=== PATIENT | male | born 1940 | race Caucasian/White ===

== ENCOUNTER 2018-04-30 16:09 | Emergency (ER) | payer MEDICARE, BC ==
--- NOTE | 2018-04-30 16:21 | ER Report ---
History and Physical Time Seen By MD: 16:13 Hx. of Stated Complaint: LETHARGIC, LIGHTHEADEDNESS (SMOOTH,MICHAEL V DO) HPI/ROS CHIEF COMPLAINT: near syncopal at football game HISTORY OF PRESENT ILLNESS: PT is visiting from [facility] and was at the football ball game with friends. PT started to feel light headed and though the may pass out. PT went to the aid station and was found to have frequent PVCs on monitor and was sent to the emergency room. Pt denies chest pain or abd pain. PT has had mild sob when arriving in [place] but states "not bad". Pt Did start acetazolamide prior to arrival to [place] to help with altitude sickness. Pt also recently was started on lasix and potassium for lower extremity edema. PT states he is feeling better now that he is out of the sun. REVIEW OF SYSTEMS: Constitutional: No fever, no chills. Eyes: No discharge. ENT: No sore throat. Cardiovascular: No chest pain, no palpitations. Respiratory: No cough, + shortness of breath. Gastrointestinal: No abdominal pain, no vomiting. Genitourinary: No hematuria. Musculoskeletal: No back pain. Skin: No rashes. Neurological: No headache, + near syncopal (MICHAEL REBOLLAR V ) Allergies: Coded Allergies: No Known Drug Allergies (Unverified , 04/30/18) Home Meds Reported Medications Furosemide (FUROSEMIDE) 20 Mg Tablet, 1 TAB PO ONCE, TAB 04/30/18 Potassium Chloride (POTASSIUM CHLORIDE) 10 Meq Tablet.er, 10 MEQ PO QDAY 04/30/18 Mirabegron (MYRBETRIQ) 50 Mg Tab.er.24h, 50 MG PO DAILY 04/30/18 Zaleplon (SONATA) 10 Mg Capsule, 10 MG PO DAILY, CAPSULE 04/30/18 Solifenacin Succinate (VESICARE) 10 Mg Tablet, 10 MG PO DAILY 04/30/18 Triamterene/Hydrochlorothiazid (TRIAMTERENE-HCTZ 37.5-25 MG TB) 1 Each Tablet, 1 EACH PO DAILY 04/30/18 Clopidogrel Bisulfate (PLAVIX) 75 Mg Tablet, 1 TAB PO QDAY, TAB 04/30/18 Levothyroxine Sodium (LEVOTHYROXINE SODIUM) 175 Mcg Tablet, 175 MCG PO QDAY 04/30/18 Simvastatin (SIMVASTATIN) 40 Mg Tablet, 40 MG PO HS, TAB 04/30/18 Clonazepam (CLONAZEPAM) 0.5 Mg Tablet, 0.5 MG PO QHS, #6 TAB 04/30/18 Tamsulosin Hcl (FLOMAX) 0.4 Mg Cap.er.24h, 0.4 MG PO BID, CAP 04/30/18 Past Medical/Surgical History Pmhx: TIA, htn, hypothyroid, restless legs, htn, l shoulder fx, hyperlipid, urinary incontinence, asthma Psxhx: AAA repair, raphael, TA (MICHAEL REBOLLAR DO) Reviewed Nurses Notes: Yes Old Medical Records Reviewed: No (never been here before) (MICHAEL REBOLLAR DO) Smoking Status: Former Smoker Hx Alcohol Use: Yes (MICHAEL REBOLLAR DO) Constitutional Vital Sign - Last 24 Hours 04/30/18 04/30/18 04/30/18 04/30/18 16:11 16:11 17:00 17:30 Temp 97.6 Pulse 66 81 88 Resp 18 15 13 B/P (MAP) 111/55 111/68 (82) 135/128 (130) Pulse Ox 96 97 O2 Delivery Nasal Cannula O2 Flow Rate 2.0 04/30/18 04/30/18 04/30/18 04/30/18 18:00 18:05 18:20 18:30 Pulse 77 72 61 Resp 22 27 17 B/P (MAP) 119/73 (88) 105/60 (75) Pulse Ox 91 90 89 04/30/18 04/30/18 04/30/18 04/30/18 18:35 18:50 19:00 19:05 Pulse 74 64 71 Resp 17 22 22 B/P (MAP) 120/67 (84) Pulse Ox 93 91 04/30/18 04/30/18 04/30/18 04/30/18 19:20 19:30 19:35 19:50 Pulse 73 68 65 Resp 23 21 21 B/P (MAP) 114/72 (86) 04/30/18 04/30/18 20:00 20:05 Pulse 68 Resp 24 B/P (MAP) 117/76 (90) 129/71 (90) Pulse Ox 94 (GRANT ZHANG MD) Physical Exam General Appearance: The patient is alert, has no immediate need for airway protection and no signs of toxicity. Eyes: Pupils equal and round no pallor or injection, EOMI, exopthmosis ENT: no pharyngeal erythema or exudates, Mucous membranes are moist Respiratory: There are no retractions, lungs are clear to auscultation. Cardiovascular: Regular rate and rhythm. pulses are equal and symmetrical Gastrointestinal: Abdomen is soft and non tender, no masses, bowel sounds normal, no guarding, no rigidity or rebound Neurological: Cranial nerves II-XII grossly intact, no sensory or motor loss Skin: Warm and dry, no rashes. Musculoskeletal: Neck is supple non tender, no vertebral tenderness Extremities are nontender, + minimal edema lower extremities b/l, and have full range of motion. DIFFERENTIAL DIAGNOSIS: After history and physical exam differential diagnosis was considered for dehydration, altitude sickness, electrolyte abnormality, acs (LAURORA,MICHAEL V DO) Medical Decision Making Data Points Result Diagram: 04/30/18 1604 04/30/18 1604 Laboratory Hematology Test 04/30/18 16:04 04/30/18 19:22 Red Blood Count 4.87 M/uL (4.00-5.60) Mean Corpuscular Volume 87.5 fL (80.0-96.0) Mean Corpuscular Hemoglobin 30.1 pg (26.0-33.0) Mean Corpuscular Hemoglobin Concent 34.4 g/dL (32.0-36.0) Red Cell Distribution Width 15.1 % (11.5-14.5) Mean Platelet Volume 7.9 fL (7.2-11.1) Neutrophils (%) (Auto) 78.7 % (39.4-72.5) Lymphocytes (%) (Auto) 12.7 % (17.6-49.6) Monocytes (%) (Auto) 6.7 % (4.1-12.4) Eosinophils (%) (Auto) 1.2 % (0.4-6.7) Basophils (%) (Auto) 0.7 % (0.3-1.4) Nucleated RBC Relative Count (auto) 0.0 /100WBC Neutrophils # (Auto) 5.9 K/uL (2.0-7.4) Lymphocytes # (Auto) 1.0 K/uL (1.3-3.6) Monocytes # (Auto) 0.5 K/uL (0.3-1.0) Eosinophils # (Auto) 0.1 K/uL (0.0-0.5) Basophils # (Auto) 0.1 K/uL (0.0-0.1) Nucleated RBC Absolute Count (auto) 0.00 K/uL Prothrombin Time 13.3 seconds (12.0-14.4) Prothromb Time International Ratio 1.01 Activated Partial Thromboplast Time 29 seconds (23-35) Sodium Level 142 mmol/L (137-145) Potassium Level 2.9 mmol/L (3.5-5.0) Chloride Level 105 mmol/L (98-107) Carbon Dioxide Level 25 mmol/L (22-30) Blood Urea Nitrogen 27 mg/dl (9-21) Creatinine 1.40 mg/dl (0.66-1.25) Glomerular Filtration Rate Calc 48.8 Random Glucose 161 mg/dl (75-110) Calcium Level 9.6 mg/dl (8.4-10.2) Magnesium Level 2.2 mg/dl (1.7-2.2) Total Bilirubin 0.7 mg/dl (0.2-1.3) Aspartate Amino Transf (AST/SGOT) 21 U/L (0-35) Alanine Aminotransferase (ALT/SGPT) 23 U/L (0-56) Alkaline Phosphatase 60 U/L (0-126) Total Protein 6.8 g/dl (6.3-8.2) Albumin 4.0 g/dl (3.5-5.0) Troponin I < 0.012 ng/ml Chemistry Test 04/30/18 16:04 04/30/18 19:22 White Blood Count 7.6 k/uL (4.5-11.0) Red Blood Count 4.87 M/uL (4.00-5.60) Hemoglobin 14.7 g/dL (14.0-18.0) Hematocrit 42.6 % (42.0-52.0) Mean Corpuscular Volume 87.5 fL (80.0-96.0) Mean Corpuscular Hemoglobin 30.1 pg (26.0-33.0) Mean Corpuscular Hemoglobin Concent 34.4 g/dL (32.0-36.0) Red Cell Distribution Width 15.1 % (11.5-14.5) Platelet Count 215 K/uL (150-450) Mean Platelet Volume 7.9 fL (7.2-11.1) Neutrophils (%) (Auto) 78.7 % (39.4-72.5) Lymphocytes (%) (Auto) 12.7 % (17.6-49.6) Monocytes (%) (Auto) 6.7 % (4.1-12.4) Eosinophils (%) (Auto) 1.2 % (0.4-6.7) Basophils (%) (Auto) 0.7 % (0.3-1.4) Nucleated RBC Relative Count (auto) 0.0 /100WBC Neutrophils # (Auto) 5.9 K/uL (2.0-7.4) Lymphocytes # (Auto) 1.0 K/uL (1.3-3.6) Monocytes # (Auto) 0.5 K/uL (0.3-1.0) Eosinophils # (Auto) 0.1 K/uL (0.0-0.5) Basophils # (Auto) 0.1 K/uL (0.0-0.1) Nucleated RBC Absolute Count (auto) 0.00 K/uL Prothrombin Time 13.3 seconds (12.0-14.4) Prothromb Time International Ratio 1.01 Activated Partial Thromboplast Time 29 seconds (23-35) Glomerular Filtration Rate Calc 48.8 Calcium Level 9.6 mg/dl (8.4-10.2) Magnesium Level 2.2 mg/dl (1.7-2.2) Total Bilirubin 0.7 mg/dl (0.2-1.3) Aspartate Amino Transf (AST/SGOT) 21 U/L (0-35) Alanine Aminotransferase (ALT/SGPT) 23 U/L (0-56) Alkaline Phosphatase 60 U/L (0-126) Total Protein 6.8 g/dl (6.3-8.2) Albumin 4.0 g/dl (3.5-5.0) Troponin I < 0.012 ng/ml Coagulation Test 04/30/18 16:04 Prothrombin Time 13.3 seconds Prothromb Time International Ratio 1.01 Activated Partial Thromboplast Time 29 seconds ([facility]) EKG/Imaging EKG Interpretation sinus rhythm @ 90 with frequent pvcs, lad and prolonged QT Imaging [facility] (MICHAEL REBOLLAR DO) ED Course/Re-evaluation Clinical Indication for ER IV: IV Access ED Course Spoke with pts daughter, Ailyn Carranza [phone], who texted over pts medication list and was able to give me pts medical hx. 04/30/2018 5:05:32 pm Pts blood work shows he is mildly dehydrated and pt potassium is low. Will medicate. 04/30/2018 5:41:38 pm Called back Ailyn Carranza and reviewed labs and current tx of fluid and potassium. 04/30/2018 6:00:20 pm Signed out to Dr. Zhang pending completion of potassium and EKG. (MICHAEL REBOLLAR DO) ED Course I reviewed this patient with Dr. Rebollar at shift change. Workup showed that he had hypokalemia and EKG showed many PVCs. He received 500cc of normal saline and a KCL rider of 20mEq. He feels better. Repeat troponin was negative. Now with normal sinus rhythm, with only occasional rare PVCs. He would like to go. Recommended increasing fluid intake and increasing potassium dose to 20mEq daily instead of 10mEq. Decision to Disposition Date: Apr 30, 2018 Decision to Disposition Time: 20:02 (GRANT ZHANG MD) Depart Departure Latest Vital Signs Vital Signs Date Time Temp Pulse Resp B/P (MAP) Pulse Ox O2 Delivery O2 Flow Rate FiO2 04/30/18 20:05 68 24 129/71 (90) 94 04/30/18 16:11 2.0 04/30/18 16:11 97.6 Nasal Cannula (GRANT ZHANG MD) Impression: Primary Impression: Syncope, near Additional Impression: Hypokalemia Condition: Improved Disposition: HOME OR SELF-CARE Patient Instructions: Hypokalemia (ED), Near Syncope (ED) Additional Instructions: Increase your fluid intake over the next few days. Increase your potassium supplement from 10mEq once a day to 20mEq once a day. Follow-up with your doctor on return home. Problem Qualifiers MICHAEL REBOLLAR DO Apr 30, 2018 16:21 GRANT ZHANG MD Apr 30, 2018 20:04
[2018-04-30] MEDS ORDERED: ASPIRIN 81 MG CHEW PO ONE (16:30)
[2018-04-30 16:33] LABS: PLATELET COUNT, AUTOMATED 215 K/uL (150-450)
[2018-04-30 16:41] LABS: INR 1.01
[2018-04-30] MEDS ORDERED: KCL (*) 20 MEQ/100 ML PREMIX 100 ML IV ONE (16:55)
[2018-04-30] MEDS ORDERED: POTASSIUM CHL PWDR 20 MEQ PKT PO ONE (16:55)
[2018-04-30] MEDS ORDERED: NS(*) 0.9% 500 ML BAG 500 ML IV ONE (16:55)
--- NOTE | 2018-04-30 17:20 | RADIOLOGY IMAGING REPORT ---
FACILITY: [facility] PATIENT NAME: Wilmer Romano : 1940 MR: [id number] V: [id number] EXAM DATE: ORDERING PHYSICIAN: MICHAEL REBOLLAR TECHNOLOGIST: Location: [facility] - [place] Patient: Wilmer Romano : 1940 Visit/Account:[id number] Date of Sevice: 04/30/2018 CHEST SINGLE AP Indication: Chest pain.. Comparison: None. Findings: Cardiomediastinal silhouette and pulmonary vessels within normal limits. There is no focal infiltrate or lobar consolidation. No pneumothorax or pleural effusion. No nodule. Upper abdomen is unremarkable. No acute bony abnormality. IMPRESSION: 1. No acute cardiopulmonary process. Report Dictated By: Kingston Eddy at 04/30/2018 5:14 PM Report E-Signed By: Kingston Eddy at 04/30/2018 5:16 PM WSN:[id number]
--- NOTE | 2018-04-30 17:22 | EKG ---
FACILITY: [facility] - [place], [place] PATIENT NAME: TIFFANIE CAMEJO : [id number] MR: [id number] V: [id number] EXAM DATE: ORDERING PHYSICIAN: MICHAEL REBOLLAR TECHNOLOGIST: YESENIA Galvan Reason : CHEST PAIN Blood Pressure : / mmHG Vent. Rate : 092 BPM Atrial Rate : 092 BPM P-R Int : 164 ms QRS Dur : 110 ms QT Int : 394 ms P-R-T Axes : 021 -48 050 degrees QTc Int : 487 ms Sinus rhythm with frequent premature ventricular complexes Pulmonary disease pattern Left anterior fascicular block Prolonged QT T flattening consistent with inferior ischemia vs normal variant No previous ECGs available Confirmed by ERNIE BERGER ([id number]) on 04/30/2018 6:52:31 PM Referred By: Confirmed By:ERNIE BERGER
[2018-04-30] MEDS ORDERED: TAMS0.4C25 PO (17:27)
[2018-04-30] MEDS ORDERED: LEVO175T42 PO (17:27)
[2018-04-30] MEDS ORDERED: TRIA-20 PO (17:27)
[2018-04-30] MEDS ORDERED: ZALE10CA95 PO (17:27)
[2018-04-30] MEDS ORDERED: SIMV-54 PO (17:27)
[2018-04-30] MEDS ORDERED: SOLI10TA8 PO (17:27)
[2018-04-30] MEDS ORDERED: MIRA50TA PO (17:27)
[2018-04-30] MEDS ORDERED: CLON-331 PO (17:27)
[2018-04-30] MEDS ORDERED: CLOP75TA43 PO (17:27)
[2018-04-30] MEDS ORDERED: FURO-45 PO (18:18)
[2018-04-30] MEDS ORDERED: POTA-28 PO (18:18)
[2018-04-30 20:05] VITALS: BP 129/71
== END 2018-04-30 20:20 | disposition home or self-care (01) ==
LOC: ER 16:23
DX: R55 Syncope and collapse (principal); E87.6 Hypokalemia
CPT/HCPCS: 36415; 71045; 83735; 84484; 85025; 85610; 85730; 93005; 96365; 96366; 99284; A9270; J3480; J7040; 82040; 82247; 82310; 82374; 82435; 82565; 82947; 84075; 84132; 84155; 84295; 84450; 84460; 84520

== ENCOUNTER → 2018-04-30 | Outpatient (CLI) | payer MEDICARE, BC ==
[~2018-04-30] MED LIST: CLON-331 PO; CLOP75TA43 PO; FURO-45 PO; LEVO175T42 PO; MIRA50TA PO; POTA-28 PO; SIMV-54 PO; SOLI10TA8 PO; TAMS0.4C25 PO; TRIA-20 PO; ZALE10CA95 PO
== END ==
LOC: AMB 15:48
PROVIDERS: ATTEND Nurse Practitioner
DX: R53.1 Weakness (principal); R41.82 Altered mental status, unspecified; I48.91 Unspecified atrial fibrillation
CPT/HCPCS: A0425; A0427